=== PATIENT | female | born 1990 | race African-American/Black ===

== ENCOUNTER 2020-06-30 14:34 | Emergency (ER) | payer SELFPAY ==
[~2020-06-30] VITALS: Ht 170.2 cm; Wt 113.6 kg
[~2020-06-30 14:34] MED LIST: GOLYTELY SOLU4000 ML PO; NO HOME MEDICATIONS; UNKNOWN INHALER
[2020-06-30 14:42] VITALS: TEMP 98.1
[2020-06-30] MEDS ORDERED: TYLENOL 500MG500 MG PO (14:54)
[2020-06-30 15:01] LABS: COLLECTION METHOD CLEAN CATCH
[2020-06-30 15:17] LABS: PH 7 (5-8); SQUAMOUS EPITHELIAL 0-2 /hpf; URINE APPEARANCE Clear; URINE BACTERIA None Seen /hpf; URINE BILIRUBIN Negative (NEGATIVE); URINE BLOOD 2+ (NEGATIVE); URINE COLOR Straw; URINE GLUCOSE Negative (NEGATIVE); URINE KETONE Negative (NEGATIVE); URINE LEUKOCYTE ESTERASE Trace (NEGATIVE); URINE NITRATE Negative (NEGATIVE); URINE PROTEIN(semi-quant) Negative (NEGATIVE); URINE UROBILINOGEN Negative (NEGATIVE)
[2020-06-30 15:39] LABS: BASO # 0.1 (0.0-0.2); BASO % 0.6 % (0.0-2.0); EOS # 0.4 (0.0-0.7); EOS % 3.3 % (0-4.0); GRAN # 7.4 (1.4-6.5); HEMATOCRIT 37.1 % (37.0-47.0); HEMOGLOBIN 11.6 g/dl (12.5-16.0); LYMPH # 3.1 (1.2-3.4); LYMPH % 26.6 % (20.0-51.0); MEAN CELL VOLUME 90 fl (80.0-100.0); MEAN CORPUSCULAR HEMOGLOBIN 28 pg (27.0-31.0); MEAN CORPUSCULAR HGB CONC 31 g/dl (33.0-37.0); MEAN PLATELET VOLUME 8.9 fl (7.4-10.4); MONO # 0.7 (0.1-0.6); MONO % 6.2 % (1.7-9.3); PLATELET COUNT 502 K/mm3 (130-400); RED BLOOD COUNT 4.14 M/mm3 (4.10-5.30); REDCELL DISTRIBUTION WIDTH-CV 13.6 % (11.5-14.5)
[2020-06-30 15:44] LABS: ALBUMIN 4.3 gm/dL (3.5-5.0); BILIRUBIN,TOTAL 0.3 mg/dL (0.0-1.0); CALCIUM 9.5 mg/dL (8.4-10.2); CREATININE, serum 0.7 (0.52-1.25); POTASSIUM 4.5 mmol/L (3.4-5.0); TOTAL PROTEIN 8.8 gm/dL (6.4-8.2)
[2020-06-30 16:21] VITALS: BP 136/82; PULSE 74
== END 2020-06-30 16:22 | disposition home or self-care (01) ==
LOC: COL.ER 14:34
PROVIDERS: Emergency Medicine; Physician Assistant
DX: R10.11 Right upper quadrant pain (principal)

== ENCOUNTER 2020-10-08 15:30 | Emergency (ER) | payer SELFPAY ==
[~2020-10-08] VITALS: Ht 160 cm; Wt 113.6 kg
[~2020-10-08 15:30] MED LIST changes: +TYLENOL 500MG500 MG PO
[2020-10-08 15:33] VITALS: BP 111/76; TEMP 97.7
[2020-10-08 15:53] LABS: COLLECTION METHOD CLEAN CATCH
[2020-10-08 16:05] LABS: MUCOUS Present /lpf; PH 5 (5-8); SQUAMOUS EPITHELIAL 20-50 /hpf; URINE APPEARANCE Cloudy; URINE BACTERIA Rare /hpf; URINE BILIRUBIN Negative (NEGATIVE); URINE BLOOD 1+ (NEGATIVE); URINE COLOR Yellow; URINE GLUCOSE Negative (NEGATIVE); URINE KETONE Negative (NEGATIVE); URINE LEUKOCYTE ESTERASE 3+ (NEGATIVE); URINE NITRATE Negative (NEGATIVE); URINE PROTEIN(semi-quant) 1+ (NEGATIVE); URINE UROBILINOGEN Negative (NEGATIVE)
[2020-10-08] MEDS ORDERED: CEPHALEXIN500 M1 PO (16:11)
[2020-10-08 16:38] VITALS: PULSE 55
== END 2020-10-08 16:38 | disposition home or self-care (01) ==
LOC: COL.ER 15:30
PROVIDERS: Emergency Medicine
DX: K59.00 Constipation, unspecified (principal); N39.0 Urinary tract infection, site not specified; Z32.02 Encounter for pregnancy test, result negative; Z79.1 Long term (current) use of non-steroidal anti-inflammatories (NSAID)

== ENCOUNTER 2024-06-04 18:18 | Emergency (ER) | payer SELFPAY ==
[~2024-06-04] VITALS: Ht 160 cm; Wt 113.6 kg
[~2024-06-04 18:18] MED LIST changes: +CEPHALEXIN500 M1 PO; +MOTRIN 800800 MG/TAB PO; +PERCOCET 325 MG1 TA2 PO
[2024-06-04 18:45] LABS: COLLECTION METHOD CLEAN CATCH
[2024-06-04 18:54] LABS: URINE APPEARANCE CLEAR (CLEAR/HAZY); URINE BLOOD 3+ (NEGATIVE); URINE COLOR ORANGE (YELLOW); URINE GLUCOSE NEGATIVE (NEGATIVE); URINE KETONE NEGATIVE (NEGATIVE); URINE NITRATE NEGATIVE (NEGATIVE); URINE PROTEIN(semi-quant) TRACE (NEGATIVE)
[2024-06-04 19:26] VITALS: BP 132/99; PULSE 98; TEMP 98.3
== END 2024-06-04 19:26 | disposition home or self-care (01) ==
LOC: COL.ER 18:18
PROVIDERS: Nurse Practitioner
DX: N93.8 Other specified abnormal uterine and vaginal bleeding (principal)

== ENCOUNTER 2024-09-22 15:04 | Emergency (ER) | payer BC ==
[~2024-09-22] VITALS: Ht 160 cm; Wt 127.3 kg
[2024-09-22 15:08] VITALS: TEMP 98.3
[2024-09-22 16:20] LABS: BASO # 0.1 K/mm3 (0.0-0.2); BASO % 0.9 % (0.0-2.0); EOS # 0.2 K/mm3 (0.0-0.7); EOS % 2.3 % (0.0-4.0); GRAN # 6.1 K/mm3 (1.4-6.5); GRAN % 60.5 % (42.2-75.2); HEMATOCRIT 35.6 % (37.0-47.0); HEMOGLOBIN 11.8 g/dl (12.5-16.0); LYMPH # 2.8 K/mm3 (1.2-3.4); LYMPH % 27.4 % (20.0-51.0); MEAN CELL VOLUME 88 fl (80.0-100.0); MEAN CORPUSCULAR HEMOGLOBIN 29 pg (27-31); MEAN CORPUSCULAR HGB CONC 33 g/dl (33.0-37.0); MEAN PLATELET VOLUME 8.8 fl (7.4-10.4); MONO # 0.9 K/mm3 (0.1-0.6); MONO % 8.6 % (1.7-9.3); PLATELET COUNT 386 K/mm3 (130-400); RED BLOOD COUNT 4.03 M/mm3 (4.10-5.30); REDCELL DISTRIBUTION WIDTH-CV 12.9 % (11.5-14.5)
[2024-09-22 16:40] LABS: ALBUMIN 3.5 g/dL (3.5-5.0); BILIRUBIN,TOTAL 0.2 mg/dL (0.2-1.2); CREATININE, serum 0.8 mg/dL (0.57-1.11); POTASSIUM 4.4 mEq/L (3.5-4.5); TOTAL PROTEIN 7.7 g/dl (6.2-8.1)
[2024-09-22 16:45] LABS: CALCIUM 9.1 mg/dL (8.4-10.2)
[2024-09-22 17:01] LABS: TSH w REFLEX 2.366 uIU/mL (0.350-4.940)
[2024-09-22 17:35] LABS: COLLECTION METHOD CLEAN CATCH
[2024-09-22 17:49] LABS: PH 6.5 (5.0-8.5); URINE APPEARANCE CLEAR (CLEAR/HAZY); URINE BLOOD 3+ (NEGATIVE); URINE COLOR ORANGE (YELLOW); URINE GLUCOSE NEGATIVE (NEGATIVE); URINE KETONE NEGATIVE (NEGATIVE); URINE NITRATE NEGATIVE (NEGATIVE); URINE PROTEIN(semi-quant) TRACE (NEGATIVE); URINE UROBILINOGEN 0.2 E.U/dL (0.2-1.0)
[2024-09-22] MEDS ORDERED: CEPHALEXIN500 M1 PO (18:35)
[2024-09-22 18:45] VITALS: BP 125/72; PULSE 64
== END 2024-09-22 18:46 | disposition home or self-care (01) ==
LOC: COL.ER 15:04
PROVIDERS: Emergency Medicine
DX: K59.00 Constipation, unspecified (principal); N39.0 Urinary tract infection, site not specified